=== PATIENT | male | born 1975 | race African-American/Black ===

== ENCOUNTER 2021-09-29 17:40 | Emergency (ER) | payer SELFPAY | END 2021-09-29 19:08 | disposition left against medical advice (07) | LOC: ERS 17:40 | DX: Z53.21 Procedure and treatment not carried out due to patient leaving prior to being seen by health care provider (principal) ==

== ENCOUNTER 2021-12-03 12:30 | Emergency (ER) | payer SELFPAY | END 2021-12-03 13:15 | disposition home or self-care (01) | LOC: ERS 12:30 | DX: I10 Essential (primary) hypertension (principal); E78.5 Hyperlipidemia, unspecified; E03.9 Hypothyroidism, unspecified; F17.200 Nicotine dependence, unspecified, uncomplicated | CPT/HCPCS: 99281 ==

== ENCOUNTER 2025-09-21 10:36 | Emergency (ER) | payer OTHER, SELFPAY ==
[2025-09-21] MEDS ORDERED: Ibuprofen 200 MG TAB ONE (11:23)
== END 2025-09-21 12:17 | disposition home or self-care (01) ==
LOC: ERS 10:36
DX: S39.012A Strain of muscle, fascia and tendon of lower back, initial encounter (principal); S80.02XA Contusion of left knee, initial encounter; I10 Essential (primary) hypertension; F17.200 Nicotine dependence, unspecified, uncomplicated; Z79.899 Other long term (current) drug therapy; V43.52XA Car driver injured in collision with other type car in traffic accident, initial encounter; Y93.89 Activity, other specified
CPT/HCPCS: 72100; 99284